=== PATIENT | female | born 1980 | race African-American/Black ===

== ENCOUNTER 2020-04-03 09:32 | Emergency (ER) | payer OTHER ==
[~2020-04-03] VITALS: Ht 180.3 cm; Wt 87.1 kg
[2020-04-03 09:34] VITALS: BP 113/67
--- NOTE | 2020-04-03 09:36 | NUR ---
Patient ambulated to bed 5. Patient in hospital gown. Potentially harmful items removed from room.
--- NOTE | 2020-04-03 09:43 | NUR ---
TELEPSYCH SET UP AT BEDSIDE PER DR. KNAPP ORDER.
--- NOTE | 2020-04-03 09:50 | NUR ---
LAB AT BEDSIDE
--- NOTE | 2020-04-03 09:50 | NUR ---
PT IS AWAKE AND ALERT. VERBALIZES MUCH REGARDING WANTING TO . "I JUST WISH COVID WOULD KILL ME" "IMOVED HERE 2 MONTHS AGO FROM [place] AND [place] ALREADY BEEN ADMITTED TO [facility] 5 TIMES"
--- NOTE | 2020-04-03 09:59 | NUR ---
Security called to pickers material handlers patient's belongings and store them during her stay.
[2020-04-03 10:07] LABS: BASOPHILS # (AUTO) 0.1 K/uL (0.00-0.22); BASOPHILS % (AUTO) 0.9 % (0.0-2.0); EOSINOPHILS # (AUTO) 0.1 K/uL (0-0.4); EOSINOPHILS % (AUTO) 1.3 % (0.0-4.0); HEMATOCRIT 28.2 % (36-48); HEMOGLOBIN 8.4 g/dL (12.0-16.0); LYMPHOCYTES # (AUTO) 1.6 K/uL (2.5-16.5); LYMPHOCYTES % (AUTO) 20.4 % (20.5-51.1); MEAN CORPUSCULAR HEMOGLOBIN 17 pg (27-31); MEAN CORPUSCULAR HGB CONC 30 g/dL (33-37); MEAN CORPUSCULAR VOLUME 56.8 fL (80-94); MONOCYTES # (AUTO) 0.4 K/uL (0.8-1.0); MONOCYTES % (AUTO) 4.8 % (1.7-9.3); NEUTROPHILS # (AUTO) 5.7 K/uL (1.8-7.7); NEUTROPHILS % (AUTO) 72.6 % (42.2-75.2); PLATELET COUNT (AUTO) 267 K/uL (140-450); RED BLOOD CELL COUNT(AUTO) 4.97 MIL/uL (4.20-5.40); RED CELL DISTRIBUTION WIDTH 31.8 % (11.6-13.7); WHITE BLOOD COUNT (AUTO) 7.8 K/uL (4.8-10.8)
--- NOTE | 2020-04-03 10:19 | NUR ---
TELEPSYCH REQUEST INTIATED
[2020-04-03 10:26] LABS: ALBUMIN 3.2 g/dL (3.4-5.0); ANION GAP 13.9 (8-16); ASPARTATE AMINOTRANSFERASE 11 U/L (15-37); CARBON DIOXIDE 25.9 mmol/L (21-32); CHLORIDE 103 mmol/L (98-107); CREATININE 0.7 mg/dL (0.6-1.3); GFR ARICAN-AMERICAN 118 mL/min (>90); GLUCOSE 93 mg/dL (74-106); POTASSIUM 3.8 mmol/L (3.5-5.1); SALICYLATE 6.7 mg/dL (2.8-20.0); SODIUM SERUM 139 mmol/L (136-145); TOTAL BILIRUBIN 0.3 mg/dL (0.0-1.0); UREA NITROGEN, BLOOD 9 mg/dL (7-18)
--- NOTE | 2020-04-03 10:36 | NUR ---
[facility] AT BEDSIDE.
--- NOTE | 2020-04-03 10:41 | NUR ---
[facility] AT BEDSIDE EVALUATING FOR [id number]
--- NOTE | 2020-04-03 10:58 | NUR ---
SPEAKING WITH TELE-PSYCH
[2020-04-03 11:32] LABS: ACETAMINOPHEN < 0.5 ug/ml (10-30)
[2020-04-03 12:10] LABS: BARBITURATE, URINE NEGATIVE ng/ml (NEG <=200); BENZODIAZEPINE, URINE NEGATIVE ng/mL (NEG <=200); CANNABINOID, URINE POSITIVE ng/mL (NEG <=50); COCAINE, URINE NEGATIVE ng/mL (NEG <=300); OPIATE, URINE NEGATIVE ng/mL (NEG <=2000); PHENCYCLIDINE SCREEN,URINE NEGATIVE ng/mL (NEG <=25)
--- NOTE | 2020-04-03 12:29 | NUR ---
Contacted crisis center and spoke to Aditi about finding placement for patient. Aditi was given a report and will call back with an update.
[2020-04-03 12:38] LABS: APPEARANCE,URINE HAZY (CLEAR); BILIRUBIN,URINE NEGATIVE (NEGATIVE); BLOOD, URINE NEGATIVE (NEGATIVE); COLOR,URINE AMBER (YELLOW); LEUKOCYTE ESTERASE ,URINE NEGATIVE (NEGATIVE); NITRITE, URINE NEGATIVE (NEGATIVE); PH,URINE 6.5 (5.0-9.0); UGLUCOSE NEGATIVE (NEGATIVE)
--- NOTE | 2020-04-03 13:14 | NUR ---
Patient is medically clear per Dr. Anguiano pending covid mary results.
--- NOTE | 2020-04-03 14:28 | NUR ---
[facility] received pt packet. Will begin looking for placement at this time.
--- NOTE | 2020-04-03 16:50 | NUR ---
SPOKE WITH YONI AT [facility] [place]. [facility] WILL BE ACCEPTING WITH DR. QUACH ACCEPTING PHYSICIAN
[2020-04-03 18:00] VITALS: BP 97/61
--- NOTE | 2020-04-03 18:00 | NUR ---
Patient to be transferred to [facility]. Is being transferred due to MENTAL HEALTH NEEDS. Receiving facility has accepting physician and available space. ER physician has signed transfer form. Patient or responsible republican has agreed to transfer and signed form. Patient belongings inventoried and will be sent with patient. Copy of nursing notes, lab reports, EKG, Physicians Orders and X-rays to be sent with patient. Report called toSEAN at receiving facility. [facility] ambulance service has been called for transfer.
--- NOTE | 2020-04-03 18:05 | NUR ---
[facility] HERE FOR TRANSPORT TO [facility] [place]
== END 2020-04-03 18:05 | disposition short-term general hospital (02) ==
LOC: MED 09:32
DX: R45.851 Suicidal ideations (principal); F17.210 Nicotine dependence, cigarettes, uncomplicated; F12.90 Cannabis use, unspecified, uncomplicated; M32.9 Systemic lupus erythematosus, unspecified; Z88.0 Allergy status to penicillin; Z98.84 Bariatric surgery status; Z20.828 Contact with and (suspected) exposure to other viral communicable diseases
CPT/HCPCS: 36415; 80053; 80305; 81003; 85025; 87426; 99285; G0480; G0482; U0003; 99283